=== PATIENT | female | born 1980 | race Caucasian/White ===

== ENCOUNTER → 2019-03-19 09:51 | Outpatient (CLI) | payer MEDICAID | END | disposition home or self-care (01) | LOC: D.ECHO 09:51 | PROVIDERS: ATTEND Internal Medicine Medical Oncology | DX: C81.11 Nodular sclerosis Hodgkin lymphoma, lymph nodes of head, face, and neck (principal); Z51.11 Encounter for antineoplastic chemotherapy; R55 Syncope and collapse ==